=== PATIENT | male | born 1980 | race African-American/Black ===

== ENCOUNTER 2017-03-19 11:44 | Emergency (ER) | payer OTHER ==
[~2017-03-19] VITALS: Ht 182.9 cm; Wt 83.5 kg
[2017-03-19 13:43] VITALS: BP 111/53; PULSE 74; TEMP 98.2
== END 2017-03-19 13:44 | disposition home or self-care (01) ==
LOC: COL.ER 11:44
DX: S20.212A Contusion of left front wall of thorax, initial encounter (principal); V47.5XXA Car driver injured in collision with fixed or stationary object in traffic accident, initial encounter; Y92.410 Unspecified street and highway as the place of occurrence of the external cause

== ENCOUNTER 2018-06-20 17:04 | Emergency (ER) | payer OTHER | END 2018-06-20 17:32 | disposition left against medical advice (07) | LOC: COL.ER 17:04 | DX: Z72.89 Other problems related to lifestyle (principal) ==